=== PATIENT | female | born 1995 | race Caucasian/White ===

== ENCOUNTER → 2019-03-14 | Outpatient (CLI) | payer OTHER ==
[2019-03-14 10:02] LABS: HCT 38.1 % (34.0-46.0); HGB 12.4 gm/dL (11.4-16.0); MCH 30.8 pg (25.0-35.0); MCHC 32.7 g/dL (31.0-37.0); MCV 94.4 fL (80.0-100.0); Mean Platelet Volume 7.8; Platelet Count 192 k/uL (150-450); RBC 4.03 m/uL (3.80-5.40); RDW 14.2 % (11.5-15.5); WBC 7.7 k/uL (3.8-10.6)
[2019-03-14 10:29] LABS: African American GFR (CKD) >90 (>60 ml/min/1.73 sqM); Glucose 89 mg/dL (74-99)
--- NOTE | 2019-03-14 13:46 | US ---
EXAMINATION TYPE: Transabdominal DATE OF EXAM: 03/14/2019 9:26 AM COMPARISON: NONE CLINICAL HISTORY: Z36 Confirm Dates. Confirm dates, 2, para 1 EXAM PERFORMED: Transabdominal (TA) EXAM MEASUREMENTS: GESTATIONAL AGE / DATING Physician Established: (10 weeks/1 days) EDC: 10/09/2019 Dates by LMP: (10 weeks/1 days) EDC: 10/09/2019 Dates by First Scan: This is 1st scan Dates by Current Scan for: (10 weeks/1 days) EDC: 10/09/2019 MATERNAL ANATOMY Uterus: 11.0 x 7.0 x 7.7cm, anteverted Right Ovary: 2.7 x 2.7 x 1.8cm Left Ovary: 3.1 x 1.7 x 2.2cm Post CDS / Adnexa: wnl Presence of free fluid: no Presence of corpus luteal cyst: not seen Presence of subchorionic bleed: no GESTATION / SURVEY CRL: 3.2cm (10 weeks/1 days) Yolk Sac (normal less than 6mm): 5.0mm Heart Rate: 178 bpm Rhythm: Normal IUP: Viable IUP Date of LMP: 01/02/2019 Beta HcG (if available): Not available at time of exam Viable single IUP measuring 10 weeks 1 day with a heart rate of 178bpm and an estimated delivery date of 10/09/2019. IMPRESSION: Single viable intrauterine corresponding to ultrasound age 10 weeks 1 day with estimated da te of delivery 10/09/2019 today's exam.
[2019-03-14 18:14] LABS: HIV 1 AB Non-Reactive (Non-Reactive); HIV AB P24 Non-Reactive (Non-Reactive); HIV P24 AG Non-Reactive (Non-Reactive)
[2019-03-15 03:25] LABS: Toxoplasma Antibody (IgG) <3.0 IU/mL (<7.2); Toxoplasma Antibody (IgM) <3.0 AU/mL (<8.0)
== END | disposition home or self-care (01) ==
LOC: RADUSWWP 08:57
PROVIDERS: ATTEND Obstetrics & Gynecology
DX: Z36.9 Encounter for antenatal screening, unspecified (principal); Z34.81 Encounter for supervision of other normal pregnancy, first trimester; R53.83 Other fatigue
CPT/HCPCS: 36415; 76801; 82565; 82947; 85027; 86762; 86777; 86778; 86780; 86850; 86900; 86901; 87340; 87390

== ENCOUNTER → 2019-06-22 | Outpatient (CLI) | payer OTHER ==
[2019-06-22 11:05] LABS: HCT 34.7 % (34.0-46.0); HGB 11.5 gm/dL (11.4-16.0); MCHC 33.1 g/dL (31.0-37.0); MCV 99.9 fL (80.0-100.0); Mean Platelet Volume 7.4; Platelet Count 242 k/uL (150-450); RBC 3.48 m/uL (3.80-5.40); RDW 12.9 % (11.5-15.5); WBC 11.4 k/uL (3.8-10.6)
== END | disposition home or self-care (01) ==
LOC: LABWHC1 09:14
PROVIDERS: ATTEND Obstetrics & Gynecology
DX: Z34.82 Encounter for supervision of other normal pregnancy, second trimester (principal)
CPT/HCPCS: 36415; 82950; 85027

== ENCOUNTER 2019-10-09 05:44 | Inpatient (IN) | payer OTHER ==
[2019-10-09] MEDS ORDERED: TERBUTALINE 1 MG/ML VIAL SQ PRN (05:55)
[2019-10-09] MEDS ORDERED: METHYLERGONOVINE 0.2 MG/ML 1 ML AMP IM PRN (05:55)
[2019-10-09] MEDS ORDERED: OXYTOCIN 10 UNIT/ML 1 ML VIAL IM PRN (05:55)
[2019-10-09] MEDS ORDERED: LIDOCAINE 0.5% (PF) 5 MG/ML (50 ML SDV) SQ PRN (05:55)
[2019-10-09] MEDS ORDERED: CARBOPROST TROMETHAMINE 250 MCG/ML 1 ML AMP IM PRN (05:55)
[2019-10-09] MEDS ORDERED: OXYTOCIN 30 UNITS/500 ML NS 30 UNIT in SALINE 1 500ML.BAG IV SCH (05:55)
[2019-10-09] MEDS: LACTATED RINGERS 1,000 ML IV SCH ×2 (06:01→08:47)
--- NOTE | 2019-10-09 06:05 | P.HPOB ---
History of Present Illness H&P Date: 10/09/19 Chief Complaint: Requested induction of labor This patient is a pleasant 24-year-old 2 para 1 female estimated date of confinement 10/09/2019 estimated gestational age 40-0/7 weeks who presents to labor and delivery for requested induction of labor. Patient's care has been uncomplicated. She is uncomfortable as requested induction at this time. Review of Systems Genitourinary: Reports Menstruation: Reports amenorrhea Past Medical History Past Medical History: Asthma History of Any Multi-Drug Resistant Organisms: None Reported Past Surgical History: No Surgical Hx Reported Additional Past Surgical History / Comment(s): IUD Past Anesthesia/Blood Transfusion Reactions: No Reported Reaction Past Psychological History: Anxiety Smoking Status: Current every day smoker Past Alcohol Use History: None Reported Past Drug Use History: None Reported Medications and Allergies Home Medications Medication Instructions Recorded Confirmed Type Pnv No.95/Ferrous Fum/Folic AC 1 each PO DAILY 10/09/19 10/09/19 History [ Multivitamin Tablet] Allergies Allergy/AdvReac Type Severity Reaction Status Date / Time aspirin Allergy Rash/Hives Verified 03/05/16 16:57 ibuprofen Allergy Rash/Hives Verified 03/05/16 16:57 sulfamethoxazole Allergy Anaphylaxis Verified 03/05/16 16:57 [From ] trimethoprim [From ] Allergy Anaphylaxis Verified 03/05/16 16:57 Exam Intake and Output 10/08/19 10/08/19 10/09/19 14:59 22:59 06:59 Other: Weight 89.358 kg - OBG Physical Exam Abdomen: bowel sounds normal, no diffuse tenderness, no bruit present, no guarding noted, no hepatomegaly, no splenomegaly, no mass Vulva: both: normal Vagina: normal moisture, no discharge Cervix: no lesion (Cervix is 3-4 cm dilated 50% effaced and -2 station.), no discharge Uterus: enlarged (Fundal height is 39 cm) Results blood work shows she is O positive, rubella immune, RPR nonreactive, hepatitis B negative, HIV nonreactive, Glucola was normal, group B strep was negative, ultrasounds have been normal. Assessment and Plan Assessment: This is a pleasant 24-year-old 2 para 1 female 40-0/7 weeks who presents to labor and delivery for requested induction of labor. Plan is induction of labor and anticipate vaginal delivery. (1) 40 weeks gestation of Current Visit: Yes Status: Acute Code(s): Z3A.40 - 40 WEEKS GESTATION OF SNOMED Code(s): 04056336 (2) Elective induction of labor planned Current Visit: Yes Status: Acute Code(s): IAT4658 - SNOMED Code(s): 954764405
[2019-10-09 06:17] LABS: Basophils # (A) 0.1 k/uL (0-0.2); Basophils % (A) 1 %; Eosinophils # (A) 0.2 k/uL (0-0.7); Eosinophils % (A) 2 %; HCT 33.1 % (34.0-46.0); HGB 11.1 gm/dL (11.4-16.0); Lymphocytes # (A) 2.3 k/uL (1.0-4.8); Lymphocytes % (A) 23 %; MCH 30.5 pg (25.0-35.0); MCHC 33.5 g/dL (31.0-37.0); MCV 91.2 fL (80.0-100.0); Mean Platelet Volume 8.7; Monocytes # (A) 0.4 k/uL (0-1.0); Monocytes % (A) 4 %; Neutrophils # (A) 6.7 k/uL (1.3-7.7); Neutrophils % (A) 68 %; Platelet Count 271 k/uL (150-450); RBC 3.63 m/uL (3.80-5.40); WBC 9.9 k/uL (3.8-10.6)
[2019-10-09] MEDS ORDERED: fentaNYL (PF) 50 MCG/ML 5 ML AMP ONE (08:25)
[2019-10-09] MEDS ORDERED: ROPIVACAINE 5MG/ML 20ML VIAL ONE (08:25)
[2019-10-09] MEDS ORDERED: SODIUM CHLORIDE 0.9% 100 ML BAG ONE (08:25)
[2019-10-09] MEDS ORDERED: diphenhydrAMINE 50 MG/ML 1 ML VIAL IVP PRN (10:44)
[2019-10-09] MEDS ORDERED: diphenhydrAMINE 25 MG CAP PO PRN (10:44)
[2019-10-09] MEDS ORDERED: BISACODYL 10 MG SUPP RECTAL PRN (10:44)
[2019-10-09] MEDS ORDERED: OXYTOCIN 20 UNITS/1000 ML NS 1,000 ML IV SCH (10:44)
[2019-10-09] MEDS ORDERED: SIMETHICONE 80 MG CHEWABLE PO PRN (10:44)
[2019-10-09] MEDS ORDERED: ACETAMINOPHEN TAB 325 MG TAB PO PRN (10:44)
[2019-10-09] MEDS ORDERED: BENZOCAINE/MENTHOL SPRAY 1 GM/SPRAY AEROSOL TOPICAL PRN (10:44)
[2019-10-09] MEDS ORDERED: HYDROCORTISONE 2.5% RECTAL CREAM 30 GM TUBE RECTAL PRN (10:44)
[2019-10-09] MEDS ORDERED: LANOLIN CREAM 5 GM TUBE TOPICAL PRN (10:44)
[2019-10-09] MEDS ORDERED: ZOLPIDEM 5 MG TAB PO PRN (10:44)
[2019-10-09] MEDS ORDERED: WITCH HAZEL 1 EACH MED..PAD TOPICAL PRN (10:44)
[2019-10-09 11:11] VITALS: RESP 16
--- NOTE | 2019-10-09 12:29 | P.PROBDLV ---
Vaginal Delivery Note - . Vaginal Delivery Note: Normal vaginal delivery viable male infant Apgars 9 and 9 delivery time is 1012 hrs. Please see dictated H&P for intimate details of this patient's admission. Brief summary this is a pleasant 24-year-old 2 para 1 female 40-0/7 weeks gestation admitted to labor and delivery for induction of labor. Patient is admitted she 3-4 cm dilated is artificial rupture membranes for clear fluid. Labor is induced with Pitocin per protocol. Patient's labor progresses and she gets an epidural quickly gets to complete. Patient pushes the head to the perineum the posterior perineum was supported and we have controlled delivery of 's head over the intact perineum. Mouth and nares are bulb suctioned. There is no evidence of nuchal cord. With gentle downward traction we then have deliver the anterior and posterior shoulder and rest this 's body. This is a vigorous viable male infant Apgars are 9 and 9 delivery time is 1012 hrs. Infant is late on the mother's abdomen. After the umbilical cord is done pulsating, the umbilical cord is doubly clamped and cut and appears to be trivascular. The placenta spontaneously delivered soon thereafter. It appears to be intact. Estimated blood loss is 100 mL. There are no lacerations and no repair. Infant and mother are stable delivery room. There are no complications. All counts are correct 3.
[2019-10-09] MEDS: SENNOSIDES-DOCUSATE SODIUM 1 EACH TAB PO SCH ×2 (20:08→20:09)
--- NOTE | 2019-10-10 06:42 | P.PNOBGVD ---
Subjective - Subjective Patient reports: Reports appetite normal, Reports voiding normally, Reports pain well controlled, Reports ambulating normally : doing well Objective - Latest Vital Signs Latest vital signs: Vital Signs Temp Pulse Resp BP 10/09/19 23:40 98.3 F 69 16 139/70 10/09/19 20:10 98.3 F 81 16 133/70 10/09/19 15:44 98.4 F 84 16 125/68 10/09/19 12:45 98.2 F 92 16 122/65 10/09/19 12:15 91 16 122/60 10/09/19 11:45 98.5 F 82 16 115/62 10/09/19 11:20 84 16 120/59 10/09/19 11:05 82 16 115/63 10/09/19 10:51 82 16 121/59 10/09/19 10:36 94 16 117/56 Intake and Output 10/09/19 10/09/19 10/10/19 14:59 22:59 06:59 Output Total 100 Balance -100 Output: Estimated Blood Loss 100 Other: # Voids 1 1 1 - Exam Lungs: bilateral: normal Chest: Normal S1, Normal S2 Extremities: Present: normal Abdomen: Present: normal appearance, soft Uterus: Present: normal, firm Assessment and Plan Assessment: day #1. Patient is resting without complaints. She wishes to go home. Vital signs are stable she's afebrile. Uterus is firm nontender she's having normal lochia. My impression this is a normal course. Plan is to continue routine care discharge home later today (1) 40 weeks gestation of Current Visit: Yes Status: Acute Code(s): Z3A.40 - 40 WEEKS GESTATION OF SNOMED Code(s): 54917037 (2) Elective induction of labor planned Current Visit: Yes Status: Acute Code(s): [id number] - SNOMED Code(s): 4056 18185
--- NOTE | 2019-10-10 06:45 | P.DS ---
Providers Date of admission: 10/09/19 05:44 Expected date of discharge: 10/10/19 Attending physician: Nimesh Suero Primary care physician: Stated None - Discharge Diagnosis(es) (1) 40 weeks gestation of Current Visit: Yes Status: Acute (2) Elective induction of labor planned Current Visit: Yes Status: Acute Hospital Course: Please see dictated H&P for intimate details of this patient's admission. Brief summary this pleasant 24-year-old 2 para 1 female 40-0/7 weeks gestation admitted to labor and delivery for induction. She is admitted she is uncomplicated induction of labor was on have a vaginal delivery viable male infant. Please see dictated delivery note. day #1 patient without complaints wishes to go home felt be stable for discharge home follow up with me in 6 weeks. Procedures: Induction of labor and normal vaginal delivery Patient Condition at Discharge: Good Plan - Discharge Summary New Discharge Prescriptions: No Action Pnv No.95/Ferrous Fum/Folic AC [ Multivitamin Tablet] 1 each PO DAILY Discharge Medication List Pnv No.95/Ferrous Fum/Folic AC [ Multivitamin Tablet] 1 each PO DAILY 10/09/19 [History] Follow up Appointment(s)/Referral(s): Nimesh Suero MD [STAFF PHYSICIAN] - 11/23/19 9:30 am Patient Instructions/Handouts: Vaginal Delivery (DC) Activity/Diet/Wound Care/Special Instructions: No intercourse or anything per vagina for 6 weeks. Please call if any fever, chills, excessive vaginal bleeding, and/or abdominal pain.
[2019-10-10 08:11] VITALS: BP 128/74; PULSE 95; TEMP 98.7
== END 2019-10-10 12:15 | disposition home or self-care (01) | DRG 807 ==
LOC: 4FBP 05:44
PROVIDERS: ADMIT Obstetrics & Gynecology; ATTEND Obstetrics & Gynecology
PROC: 3E0R3BZ Introduction of Anesthetic Agent into Spinal Canal, Percutaneous Approach (ICD-10-PCS; principal; 2019-10-09)
PROC: 10E0XZZ Delivery of Products of Conception, External Approach (ICD-10-PCS; principal; 2019-10-09)
PROC: 3E033VJ Introduction of Other Hormone into Peripheral Vein, Percutaneous Approach (ICD-10-PCS; principal; 2019-10-09)
PROC: 10907ZC Drainage of Amniotic Fluid, Therapeutic from Products of Conception, Via Natural or Artificial Opening (ICD-10-PCS; principal; 2019-10-09)
PROC: 00HU33Z Insertion of Infusion Device into Spinal Canal, Percutaneous Approach (ICD-10-PCS; principal; 2019-10-09)
DX: O99.334 Smoking (tobacco) complicating childbirth (principal); Z37.0 Single live birth; F17.200 Nicotine dependence, unspecified, uncomplicated; O99.52 Diseases of the respiratory system complicating childbirth; J45.909 Unspecified asthma, uncomplicated; Z3A.40 40 weeks gestation of pregnancy; Z79.899 Other long term (current) drug therapy; Z86.59 Personal history of other mental and behavioral disorders; Z88.6 Allergy status to analgesic agent; Z88.2 Allergy status to sulfonamides
CPT/HCPCS: 85025; 86850; 86900; 86901